=== PATIENT | male | born 1990 | race Two or more races ===

== ENCOUNTER 2024-02-26 07:36 | Emergency (ER) | payer OTHER ==
[~2024-02-26] VITALS: Ht 188 cm; Wt 106.6 kg
[2024-02-26 07:40] VITALS: BP 146/92; PULSE 77; RESP 15; TEMP 98.8; O2SAT 97
[2024-02-26 07:50] VITALS: BP 146/92; PULSE 77; RESP 15; TEMP 98.8; O2SAT 97
[2024-02-26 08:54] LABS: BASOPHILS % (AUTO) 0.4 % (0.0-2.0); EOSINOPHILS # (AUTO) 0.4 K/uL (0-0.4); HEMATOCRIT 43.6 % (36-52); HEMOGLOBIN 14.4 g/dL (12.0-18.0); LYMPHOCYTES # (AUTO) 1.7 K/uL (2.0-11.5); LYMPHOCYTES % (AUTO) 18.3 % (20.5-51.1); MEAN CORPUSCULAR HEMOGLOBIN 30 pg (27-31); MEAN CORPUSCULAR HGB CONC 33 g/dL (33-37); MONOCYTES # (AUTO) 0.6 K/uL (0.8-1.0); MONOCYTES % (AUTO) 6.6 % (1.7-9.3); NEUTROPHILS # (AUTO) 6.4 K/uL (1.8-7.7); NEUTROPHILS % (AUTO) 70.7 % (42.2-75.2); PLATELET COUNT (AUTO) 353 K/uL (140-450); RED BLOOD CELL COUNT(AUTO) 4.84 MIL/uL (4.20-6.10); RED CELL DISTRIBUTION WIDTH 13.8 % (11.6-13.7); WHITE BLOOD COUNT (AUTO) 9.1 K/uL (4.8-10.8)
[2024-02-26] MEDS: KETOROLAC 30 MG/ML VIAL IM ONE (08:54)
[2024-02-26 09:05] LABS: ANION GAP 12.2 (8-16); CARBON DIOXIDE 26.6 mmol/L (21-32); POTASSIUM 3.8 mmol/L (3.5-5.1)
== END 2024-02-26 09:55 | disposition home or self-care (01) ==
LOC: MED 07:36
DX: R51.9 Headache, unspecified (principal)
CPT/HCPCS: 36415; 80048; 85025; 96372; 99283; J1885